=== PATIENT | female | born 1935 | race Caucasian/White ===

== ENCOUNTER 2018-03-27 17:34 | Emergency (ER) | payer OTHER ==
[~2018-03-27] VITALS: Ht 157.5 cm; Wt 69.8 kg
[~2018-03-27 17:34] MED LIST: ASPIR 8181 MG PO; ASPIRIN325 PO; CALCIUM 500 +1 EAC5 PO; COLACE100 MG PO; IRON325 PO; LIPITOR10 MG PO; MAGOX 400400 MG PO; NEXIUM40 MG PO; OSTERA TABLET1 EAC1 PO; PROBIOTIC1 EAC1 PO; PYRIDOXINE HCL50 MG PO; VITAMIN C500 MG/15 PO
[2018-03-27] MEDS ORDERED: VITAMIN B-50 C0.4 MG PO (17:46)
[2018-03-27] MEDS ORDERED: GARLIC1 EACH PO (17:46)
[2018-03-27] MEDS ORDERED: VITAMIN K100 MCG PO (17:47)
[2018-03-27 18:25] LABS: ABSOLUTE EOSINOPHILS 0.1 thou/uL (0.0-0.7); ABSOLUTE MONOCYTES 0.4 thou/uL (0.0-1.2); ABSOLUTE NEUTROPHILS 3.5 thou/uL (1.6-8.1); BASOPHILS 0.6 %; EOSINOPHILS 1.8 %; HEMATOCRIT 38.2 % (37.0-47.0); HEMOGLOBIN 12.9 gm/dL (12.0-15.0); LYMPHOCYTES 19.9 %; MCH 32.1 pg (26.0-34.0); MCHC 33.8 g/dL (28.0-37.0); MONOCYTES 8.7 %; MPV 8.5 fl. (7.2-11.1); NUCLEATED RBCS 0 /100WBC; PLATELET COUNT* 194 thou/uL (150-400); RBC 4.02 mil/uL (4.20-5.00); RDW-CV 13.4 % (10.5-14.5); WBC 5.1 thou/uL (4.0-11.0)
[2018-03-27 18:32] LABS: ANION GAP 7 mmol/L (7-16); BUN 24 mg/dL (7-18); CALCIUM 8.7 mg/dL (8.5-10.1); CHLORIDE 104 mmol/L (98-107); CO2 27 mmol/L (21-32); CREATININE 1.3 mg/dL (0.6-1.3); GLUCOSE 99 mg/dL (70-99); POTASSIUM 3.8 mmol/L (3.5-5.1); SODIUM 138 mmol/L (136-145)
[2018-03-27 18:39] LABS: ALBUMIN 3.5 g/dL (3.4-5.0); ALKALINE PHOSPHATASE 53 U/L (46-116); SGOT 19 U/L (15-37); SGPT 18 U/L (30-65); TOTAL BILIRUBIN 0.2 mg/dL (<0.1-1.0); TOTAL PROTEIN 6.4 g/dL (6.4-8.2); TROPONIN-I LEVEL <0.06 ng/mL (<0.06)
[2018-03-27 18:52] LABS: URINE BILIRUBIN NEGATIVE (Negative); URINE BLOOD NEGATIVE (Negative); URINE CLARITY CLEAR; URINE COLOR YELLOW; URINE GLUCOSE-RANDOM NEGATIVE (Negative); URINE KETONES NEGATIVE (Negative); URINE LEUKOCYTES-REFLEX NEGATIVE (Negative); URINE NITRITE-REFLEX NEGATIVE (Negative); URINE PROTEIN NEGATIVE (Negative); URINE SPECIFIC GRAVITY <= 1.005 (1.005-1.030); URINE UROBILINOGEN 0.2 E.U./dl (0.2-1.0)
[2018-03-27 22:27] VITALS: BP 155/68
--- NOTE | 2018-03-28 12:16 | EKG ---
[place] [address] ELECTROCARDIOGRAM REPORT Name: GUEVARA KYLE Room: [facility]#: [id number] Admission: 03/27/18 Attend Phys: Discharge: 03/27/18 Date of : 33 Report #: [id number] THIS REPORT FOR: //name// [facility] ED Test Date: 2018-03-27 Test Time: 18:13:46 Pat Name: GUEVARA KYLE Department: Room: Gender: F Director Of Land: [place] : 1935 Requested By: Nicki Feliciano Order Number: [id number] MD: Andrei Jha Measurements Intervals [place] Rate: 64 P: 27 DE: 124 QRS: -51 QRSD: 100 T: 3 QT: 426 QTc: 440 Interpretive Statements Sinus rhythm Left anterior fascicular block Low voltage, precordial leads Compared to ECG 11/26/2016 13:25:55 Left anterior fascicular block now present Low QRS voltage now present Left-axis deviation no longer present Electronically Signed On 03-28-2018 12:16:25 TOOL PROFILING 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
== END 2018-03-27 22:27 | disposition home or self-care (01) ==
LOC: M.ERS 17:34
PROVIDERS: Nurse Practitioner Family
DX: I10 Essential (primary) hypertension (principal); R55 Syncope and collapse; G89.29 Other chronic pain; M54.9 Dorsalgia, unspecified; Z88.1 Allergy status to other antibiotic agents; Z90.710 Acquired absence of both cervix and uterus

== ENCOUNTER 2021-02-15 15:31 | Inpatient (IN) | payer OTHER ==
[~2021-02-15] VITALS: Ht 154.9 cm; Wt 75.2 kg
--- NOTE | ~2021-02-15 | EMS ---
[facility] [address] [place] [address] EMS Patient Care Report Name: GUEVARA KYLE Room: [place] [address] ADM IN [facility]#: [id number] Admission: 02/15/21 Attend Phys: Ale Franz MD Discharge: Date of : 34 Report #: [id number] THIS REPORT FOR: //name// Report Transmitted: 02/15/2021 21:39 EMS Care Summary [facility] Incident [id number] @ 02/15/2021 14:42 Incident Location [address] [place] [address] Patient GUEVARA KYLE Female, 85 Years 1935 Patient Address [facility] [place] [address] Patient History Cancer, Unspecified,Stroke/CVA,Cellulitis, Patient Allergies Other drug allergy, Patient Medications Acetaminophen, Oxycodone, Chief Complaint cellulitis Disposition Transported No Lights/[place] Dispatch Reason Sick Person Transported To [facility] Narrative Dispatched to a residence for 85y/o female with leg pain and swelling. Upon arrival pt. was alert and oriented. Pt. has history of pelvic cancer. Approx. 1 month ago pt. had cellulitis of right leg and hip. Pt. received IV and oral antibiotics with no relief. Pt. states that the swelling and pain are greater [facility] [address] [place] [address] EMS Patient Care Report Name: GUEVARA KYLE Room: [place] [address] ADM IN .R.#: [id number] Admission: 02/15/21 Attend Phys: Ale Franz MD Discharge: Date of : 34 Report #: [id number] than 1 month ago. Pt. right leg and hip area are swollen when compared to the left. Right leg and hip are tender and have pain with palpation. Pt. has had fever at home of 103*f. VS were otherwise stable. Pt. was transported to [place] for emergency services. Initial Vitals @15:04P: 101,R: 18,BP: 135/53,GCS: 15,SpO2: 96,Revised Trauma: 12, @15:24P: 95,R: 18,BP: 121/60,GCS: 15,SpO2: 98,Revised Trauma: 12, @15:14P: 98,R: 18,BP: 116/63,GCS: 15,SpO2: 97,Revised Trauma: 12, @14:56P: 104,R: 18,BP: 134/65,GCS: 15,Temp: 100.9F,SpO2: 97,Revised Trauma: 12, Impression Cellulitis Timeline 14:42,Call Received 14:42,Dispatched 14:46,En Route 14:53,Initial Responder On Scene 14:53,On Scene 14:55,At Patient 14:56,BP: 134/65 M,PULSE: 104,RR: 18 R,SPO2: 97 Ox,ETCO2: ,BG: ,PAIN: ,GCS: 15, 15:04,BP: 135/53 M,PULSE: 101,RR: 18 R,SPO2: 96 Ox,ETCO2: ,BG: ,PAIN: ,GCS: 15, 15:06,Depart Scene 15:14,BP: 116/63 M,PULSE: 98,RR: 18 R,SPO2: 97 Ox,ETCO2: ,BG: ,PAIN: ,GCS: 15, 15:24,BP: 121/60 M,PULSE: 95,RR: 18 R,SPO2: 98 Ox,ETCO2: ,BG: ,PAIN: ,GCS: 15, 15:26,At Destination 15:28,Transfer Patient 15:37,Call Closed 15:52,In District Disclaimer v1.1 Copyright 2020 [employer] This EMS Care Summary contains data elements from the applicable legal record (which may be displayed differently). It is designed to provide pertinent information for the following purposes: continuity of care, clinical quality, and state data reporting. The complete legal record is available to ED staff and administrators of the receiving hospital in [employer]'s Patient Tracker. All data is provided "as is."
[~2021-02-15 15:31] MED LIST changes: +GARLIC1 EACH PO; +VITAMIN B-50 C0.4 MG PO; +VITAMIN K100 MCG PO
[2021-02-15 15:35] VITALS: BP 121/60
[2021-02-15 16:32] LABS: HEMATOCRIT 33.2 % (37.0-47.0); HEMOGLOBIN 10.9 gm/dL (12.0-15.0); MCH 30.3 pg (26.0-34.0); MCHC 32.9 g/dL (28.0-37.0); MCV 92.1 fL (80.0-100.0); MPV 7.1 fl. (7.2-11.1); NUCLEATED RBCS 0 /100WBC; PLATELET COUNT* 232 thou/uL (150-400); RBC 3.61 mil/uL (4.20-5.00); RDW-CV 14.2 % (10.5-14.5); WBC 13.6 thou/uL (4.0-11.0)
[2021-02-15 16:42] LABS: CALCIUM 8.4 mg/dL (8.5-10.1); CREATININE 1.3 mg/dL (0.6-1.3); POTASSIUM 3.9 mmol/L (3.5-5.1)
[2021-02-15 16:47] LABS: TOTAL BILIRUBIN 0.3 mg/dL (<0.1-1.0); TOTAL PROTEIN 7.1 g/dL (6.4-8.2)
[2021-02-15 16:58] LABS: ABSOLUTE LYMPHOCYTES 0.3 thou/uL (0.8-5.3); ABSOLUTE MONOCYTES 0.4 thou/uL (0.0-1.2); ABSOLUTE NEUTROPHILS 12.9 thou/uL (1.6-8.1); PLATELET ESTIMATE ADEQUATE
[2021-02-16] VITALS: BP 114/47
[2021-02-16 00:02] VITALS: BP 107/48
[2021-02-16] MEDS ORDERED: CALCIUM D-GLUC500 MG PO (06:17)
[2021-02-16] MEDS ORDERED: VITAMIN D3 COM1 EACH PO (06:20)
[2021-02-16 06:40] VITALS: BP 121/56
[2021-02-16 09:00] VITALS: BP 114/42
--- NOTE | 2021-02-16 10:17 | EKG ---
[place] [address] ELECTROCARDIOGRAM REPORT Name: GUEVARA KYLE Room: [address] IN ..#: [id number] Admission: 02/15/21 Attend Phys: Ale Franz, Discharge: Date of : 33 Date of Service: 02/15/211951 Report #: [id number] THIS REPORT FOR: //name// [facility] ED Test Date: 2021-02-15 Test Time: 19:52:43 Pat Name: GUEVARA DAVEYDEVONTAMEKA Department: Room: [facility] Gender: F Teaching Young: LORENZO : 1935 Requested By: Pooja Rodriguez Order Number: [id number] MD: Mio Ramos Measurements Intervals [place] Rate: 93 P: 35 NC: 144 QRS: -46 QRSD: 94 T: 20 QT: 382 QTc: 476 Interpretive Statements Sinus tachycardia Multiple premature complexes, vent & supraven Left anterior fascicular block Abnormal R-wave progression, late transition Borderline prolonged QT interval Compared to ECG 02/15/2021 19:23:51 Supraventricular tachycardia no longer present ST (T wave) deviation no longer present Electronically Signed On 02-16-2021 10:17:43 CDT by Mio Ramos [email or web address] <ELECTRONICALLY SIGNED> By: Mio Ramos MD, FACC 02/16/21 1017 51 51 Mio Ramos MD, [facility] /EPI
--- NOTE | 2021-02-16 10:17 | EKG ---
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 : 1935 Requested By: Pooja Rodriguez Order Number: [id number] MD: Mio Ramos Measurements Intervals [place] Rate: 174 P: 112 [place]: 94 QRS: -60 QRSD: 87 T: 77 QT: 287 QTc: 489 Interpretive Statements Supraventricular tachycardia Left anterior fascicular block Abnormal R-wave progression, late transition ST depression, probably rate related Compared to ECG 03/27/2018 18:13:46 ST (T wave) deviation now present Sinus rhythm no longer present Electronically Signed On 02-16-2021 10:17:14 CDT by Mio Ramos [email or web address] <ELECTRONICALLY SIGNED> By: Mio Ramos MD, [facility] 02/16/21 1017 22 22 Mio Ramos MD, [facility] /EPI
--- NOTE | 2021-02-16 10:18 | EKG ---
[place] [address] ELECTROCARDIOGRAM REPORT Name: GUEVARA KYLE Room: [address] ADM IN .R.#: [id number] Admission: 02/15/21 Attend Phys: Ale Franz, Discharge: Date of : 34 Date of Service: 02/15/212011 Report #: [id number] THIS REPORT FOR: //name// [facility] ED Test Date: 2021-02-15 Test Time: 20:12:28 Pat Name: GUEVARA DAVEYDEVONTAMEKA Department: Room: [facility] Gender: F Independent Living Advisor: KALEIGH : 1935 Requested By: Pooja Rodriguez Order Number: [id number] MD: Mio Ramos Measurements Intervals [place] Rate: 100 P: 62 AK: 168 QRS: -44 QRSD: 93 T: 27 QT: 352 QTc: 454 Interpretive Statements Sinus tachycardia artifact noted Multiple premature complexes, vent & supraven Inferior infarct, old Compared to ECG 02/15/2021 19:52:43 no change Electronically Signed On 02-16-2021 10:18:33 CDT by Mio Ramos [email or web address] <ELECTRONICALLY SIGNED> By: Mio Ramos MD, FACC 02/16/21 1018 11 11 Mio Ramos MD, FACC /EPI
[2021-02-16 12:00] VITALS: BP 170/85
[2021-02-16 16:00] VITALS: BP 111/53
[2021-02-17] VITALS: BP 120/51
[2021-02-17 04:00] VITALS: BP 123/58
[2021-02-17 08:30] VITALS: BP 104/76
[2021-02-17 12:00] VITALS: BP 117/54
[2021-02-17 16:00] VITALS: BP 124/58
[2021-02-17 20:00] VITALS: BP 136/65
[2021-02-18] VITALS (8 sets, daily range): BP systolic 130–168; BP diastolic 57–79
[2021-02-18 00:47] LABS: URINE BILIRUBIN NEGATIVE (Negative); URINE BLOOD NEGATIVE (Negative); URINE CLARITY CLEAR; URINE COLOR YELLOW; URINE GLUCOSE-RANDOM NEGATIVE (Negative); URINE KETONES TRACE (Negative); URINE LEUKOCYTES-REFLEX NEGATIVE (Negative); URINE NITRITE-REFLEX NEGATIVE (Negative); URINE PROTEIN TRACE (Negative); URINE SPECIFIC GRAVITY 1.025 (1.005-1.030); URINE UROBILINOGEN 0.2 E.U./dl (0.2-1.0)
[2021-02-18 13:40] LABS: MCH 30.7 pg (26.0-34.0); MCHC 33.2 g/dL (28.0-37.0); MCV 92.4 fL (80.0-100.0); MPV 7.6 fl. (7.2-11.1); NUCLEATED RBCS 0 /100WBC; PLATELET COUNT* 178 thou/uL (150-400); RBC 2.92 mil/uL (4.20-5.00); RDW-CV 14.2 % (10.5-14.5); WBC 5.2 thou/uL (4.0-11.0)
[2021-02-18 14:01] LABS: ALBUMIN 1.7 g/dL (3.4-5.0); CALCIUM 8.2 mg/dL (8.5-10.1); CREATININE 0.9 mg/dL (0.6-1.3); POTASSIUM 3.3 mmol/L (3.5-5.1); TOTAL BILIRUBIN 0.2 mg/dL (<0.1-1.0); TOTAL PROTEIN 5.4 g/dL (6.4-8.2)
[2021-02-18 14:11] LABS: ABSOLUTE EOSINOPHILS 0.1 thou/uL (0.0-0.7); ABSOLUTE LYMPHOCYTES 0.6 thou/uL (0.8-5.3); ABSOLUTE MONOCYTES 0.3 thou/uL (0.0-1.2); ABSOLUTE NEUTROPHILS 4.2 thou/uL (1.6-8.1)
[2021-02-18 14:12] LABS: PLATELET ESTIMATE ADEQUATE
[2021-02-18 14:13] LABS: HYPOCHROMASIA 1+
--- NOTE | 2021-02-18 17:09 | 2DMMODE ---
[place] [address] 2 D/M-MODE ECHOCARDIOGRAM Name: UGEVARA KYLE Room: [address] IN [facility]#: [id number] Admission: 02/15/21 Attend Phys: Ale Franz, Discharge: Date of : 34 Date of Service: 02/18/21 1708 Report #: [id number] THIS REPORT FOR: cc: RYANN ZARATE,RYANN Jeong,Feliz Lino MD [facility] ~ APPROVED REPORT Study performed: 02/18/2021 11:40:47 EXAM: Comprehensive 2D, Doppler, and color-flow Echocardiogram Patient Location: In-Patient Room #: [facility] Status: routine BSA: 1.74 HR: 92 bpm BP: 130/60 mmHg Rhythm: NSR Other Information Study Quality: Good Indications Murmur 2D Dimensions IVSd: 14.71 (7-11mm) LVOT Diam: 19.11 (18-24mm) LVDd: 35.00 mm PWd: 7.72 (7-11mm) Ascending Ao: 33.15 (22-36mm) LVDs: 17.24 (25-40mm) Aortic Root: 31.34 mm Aortic Valve AoV Peak Arnulfo.: 1.85 m/s AO Peak Gr.: 13.62 mmHg LVOT Max P.22 mmHg AO Mean Gr.: 7.90 mmHg LVOT Mean P.47 mmHg LVOT Max V: 1.14 m/s AO V2 VTI: 35.87 cm LVOT Mean V: 0.72 m/s JOSE (VTI): 1.90 cm2 LVOT V1 VTI: 23.72 cm Mitral Valve MV Mean Gr.: 6.18 mmHg E/A Ratio: 0.86 MV Decel. Time: 166.35 ms MV E Max Arnulfo.: 1.39 m/[place] [address] 2 D/M-MODE ECHOCARDIOGRAM Name: GUEVARA KYLE Room: [address] IN [facility]#: [id number] Admission: 02/15/21 Attend Phys: Ale Franz, Discharge: Date of : 34 Date of Service: 02/18/21 1708 Report #: [id number] MV PHT: 48.24 ms MVA (PHT): 4.56 cm2 TDI E/Lateral E': 15.44 E/Medial E': 19.86 Medial E' Arnulfo.: 0.07 m/s Lateral E' Arnulfo.: 0.09 m/s Pulmonary Valve PV Peak Arnulfo.: 1.05 m/s PV Peak Gr.: 4.39 mmHg Tricuspid Valve RAP Estimate: 5.00 mmHg TR Peak Gr.: 27.28 mmHg RVSP: 32.00 mmHg PA Pressure: 32.00 mmHg Left Ventricle The left ventricle is normal size. There is normal LV segmental wall motion. Moderate septal hypertrophy is present. Left ventricular systolic function is normal. LVEF is 65-70%. Grade I - abnormal relaxation pattern. Right Ventricle The right ventricle is normal size. The right ventricular systolic function is normal. Atria Left atrium is mildly dilated. The right atrium size is normal. Aortic Valve Mild aortic valve sclerosis. Mild aortic regurgitation. Mild aortic stenosis. Mitral Valve There is mitral annular calcification. Trace mitral regurgitation. No evidence of mitral valve stenosis. Tricuspid Valve The tricuspid valve is normal in structure. Mild tricuspid regurgitation. Mild pulmonary hypertension. Pulmonic Valve The pulmonary valve is normal in structure. Mild [place] [address] 2 D/M-MODE ECHOCARDIOGRAM Name: GUEVARA KYLE Room: [address]#: [id number] Admission: 02/15/21 Attend Phys: Ale Franz, Discharge: Date of : 34 Date of Service: 02/18/21 1708 Report #: [id number] Great Vessels The aortic root is normal in size. IVC is normal in size and collapses >50% with inspiration. Pericardium There is no pericardial effusion. <Conclusion> The left ventricle is normal size. Moderate septal hypertrophy is present. Left ventricular systolic function is normal. LVEF is 65-70%. Grade I - abnormal relaxation pattern. Left atrium is mildly dilated. Mild aortic valve sclerosis. Mild aortic regurgitation. Mild aortic stenosis. Trace mitral regurgitation. Mild tricuspid regurgitation. Mild pulmonary hypertension. Mild pulmonic regurgitation. IVC is normal in size and collapses >50% with inspiration. <ELECTRONICALLY SIGNED> By: Feliz Jeong MD, FACC 02/18/211707 07 07 Feliz Jeong MD, FACC /INF
[2021-02-19 04:52] VITALS: BP 144/79
[2021-02-19 08:00] VITALS: BP 159/70
[2021-02-19 12:00] VITALS: BP 131/86
[2021-02-19 16:00] VITALS: BP 160/72
[2021-02-20] VITALS (13 sets, daily range): BP systolic 129–217; BP diastolic 43–112
[2021-02-20] MEDS ORDERED: OXYCODONE-APAP1 EAC4 PO (09:05)
[2021-02-21] VITALS: BP 135/57
[2021-02-21 04:54] VITALS: BP 131/65
[2021-02-21 08:19] VITALS: BP 139/65
[2021-02-21 11:44] VITALS: BP 102/54
[2021-02-21 15:40] VITALS: BP 131/60
[2021-02-21 19:45] VITALS: BP 150/56
[2021-02-22 00:23] VITALS: BP 140/65
[2021-02-22 04:32] LABS: ABSOLUTE EOSINOPHILS 0.2 thou/uL (0.0-0.7); ABSOLUTE LYMPHOCYTES 0.6 thou/uL (0.8-5.3); ABSOLUTE MONOCYTES 0.5 thou/uL (0.0-1.2); ABSOLUTE NEUTROPHILS 3.9 thou/uL (1.6-8.1); BASOPHILS 0.5 %; EOSINOPHILS 3.7 %; HEMOGLOBIN 7.7 gm/dL (12.0-15.0); LYMPHOCYTES 12.1 %; MCH 30.8 pg (26.0-34.0); MCHC 33.6 g/dL (28.0-37.0); MCV 91.9 fL (80.0-100.0); MONOCYTES 9.2 %; MPV 7.8 fl. (7.2-11.1); NUCLEATED RBCS 0 /100WBC; PLATELET COUNT* 211 thou/uL (150-400); POLYS 74.5 %; RDW-CV 14.4 % (10.5-14.5); WBC 5.3 thou/uL (4.0-11.0)
[2021-02-22 04:47] VITALS: BP 129/60
[2021-02-22 04:51] LABS: ALBUMIN 1.8 g/dL (3.4-5.0); CREATININE 0.9 mg/dL (0.6-1.3); POTASSIUM 4.2 mmol/L (3.5-5.1); TOTAL BILIRUBIN 0.2 mg/dL (<0.1-1.0)
[2021-02-22 07:46] VITALS: BP 146/67
[2021-02-22 12:12] VITALS: BP 129/60
[2021-02-22 17:27] VITALS: BP 115/61
[2021-02-22 20:20] VITALS: BP 171/72
[2021-02-23] VITALS (7 sets, daily range): BP systolic 124–146; BP diastolic 55–89
[2021-02-23 08:07] LABS: HEMOGLOBIN 8.5 gm/dL (12.0-15.0); MCHC 33.8 g/dL (28.0-37.0); RBC 2.76 mil/uL (4.20-5.00)
[2021-02-23 08:09] LABS: HEMATOCRIT 25.1 % (37.0-47.0); MCH 30.7 pg (26.0-34.0); MPV 7.9 fl. (7.2-11.1); NUCLEATED RBCS 0 /100WBC; PLATELET COUNT* 262 thou/uL (150-400); RDW-CV 14.6 % (10.5-14.5)
[2021-02-23 08:25] LABS: CALCIUM 8.6 mg/dL (8.5-10.1); CREATININE 0.8 mg/dL (0.6-1.3); TOTAL BILIRUBIN 0.2 mg/dL (<0.1-1.0); TOTAL PROTEIN 5.5 g/dL (6.4-8.2)
[2021-02-23 08:33] LABS: PREALBUMIN 15.6 mg/dL (18.0-35.7)
[2021-02-23 09:13] LABS: ABSOLUTE EOSINOPHILS 0.1 thou/uL (0.0-0.7); ABSOLUTE LYMPHOCYTES 0.7 thou/uL (0.8-5.3); ABSOLUTE MONOCYTES 0.1 thou/uL (0.0-1.2); ABSOLUTE NEUTROPHILS 4.2 thou/uL (1.6-8.1)
[2021-02-23 09:14] LABS: HYPOCHROMASIA 1+; PLATELET ESTIMATE ADEQUATE
[2021-02-24 03:30] VITALS: BP 136/63
[2021-02-24 12:00] VITALS: BP 151/75
[2021-02-24 16:00] VITALS: BP 154/66
[2021-02-24 20:00] VITALS: BP 128/63
[2021-02-24 23:49] VITALS: BP 122/56
[2021-02-25 05:46] VITALS: BP 143/67
[2021-02-25 08:20] VITALS: BP 156/69
[2021-02-25 12:09] VITALS: BP 106/61
[2021-02-25 16:00] VITALS: BP 112/75
[2021-02-25 20:00] VITALS: BP 155/68
[2021-02-26 00:27] VITALS: BP 133/60
[2021-02-26 05:02] VITALS: BP 133/68
[2021-02-26 08:56] VITALS: BP 131/63
[2021-02-26 12:00] VITALS: BP 142/59
[2021-02-26 12:56] VITALS: BP 142/59
[2021-02-26 12:59] VITALS: BP 142/59
== END 2021-02-26 14:00 | disposition home health service (06) | DRG 872 ==
LOC: M.ERS 15:31 → M.TBA-ER 18:05 → M.2W 18:05 → M.TBA-ER 20:46 → M.2W 23:50
PROVIDERS: Emergency Medicine Emergency Medical Services; Internal Medicine; Physician Assistant; ADMIT Internal Medicine; ATTEND Internal Medicine
DX: A40.8 Other streptococcal sepsis (principal); E44.0 Moderate protein-calorie malnutrition; L03.115 Cellulitis of right lower limb; I47.1 Supraventricular tachycardia; L03.317 Cellulitis of buttock; I42.2 Other hypertrophic cardiomyopathy; Z20.822 Contact with and (suspected) exposure to COVID-19; G89.29 Other chronic pain; D64.9 Anemia, unspecified; M54.9 Dorsalgia, unspecified; R01.1 Cardiac murmur, unspecified; C51.9 Malignant neoplasm of vulva, unspecified; I10 Essential (primary) hypertension; Z86.010 Personal history of colon polyps; Z90.710 Acquired absence of both cervix and uterus; Z88.1 Allergy status to other antibiotic agents; Z86.73 Personal history of transient ischemic attack (TIA), and cerebral infarction without residual deficits; Z68.31 Body mass index [BMI] 31.0-31.9, adult; Z82.49 Family history of ischemic heart disease and other diseases of the circulatory system; Z92.3 Personal history of irradiation

== ENCOUNTER 2021-03-22 15:08 | Inpatient (IN) | payer OTHER ==
[~2021-03-22] VITALS: Ht 154.9 cm; Wt 68.0 kg
--- NOTE | ~2021-03-22 | EMS ---
[place] [address] EMS Patient Care Report Name: GUEVARA KYLE Room: [place] [address] ADM IN [facility]#: [id number] Admission: 03/22/21 Attend Phys: Adonis Sapp Discharge: Date of : 34 Report #: [id number] THIS REPORT FOR: //name// Report Transmitted: 03/22/2021 20:17 EMS Care Summary [facility] Incident [id number] @ 03/22/2021 14:23 Incident Location [address] [place] [address] Patient GUEVARA KYLE Female, 85 Years 1935 Patient Address [facility] [address] [place] [address] Patient History Cancer, Unspecified,Cellulitis,Novel Coronavirus (COVID-19), Patient Allergies Other drug allergy, Patient Medications Oxycodone/ASA, Oxycodone, Morphine, Chief Complaint ABD pain Disposition Transported No Lights/[place] Dispatch Reason Abdominal Pain/Problems Transported To [facility] Narrative Dispatched to a residence for 85y/o female with ABD pain. Upon arrival pt. was A&O. Pt. c/o upper middle ABD pain 8/10 worse with palpation. Pt. stated that she has had ABD discomfort x3 days and ABD pain x1 day. Pt. stated that she has been having regular bowel movements. Pt. was transported in position of comfort [facility] [address] [address] EMS Patient Care Report Name: GUEVARA KYLE Room: [place] [address] ADM IN [facility]#: [id number] Admission: 03/22/21 Attend Phys: Adonis Sapp Discharge: Date of : 34 Report #: [id number] which eased the pain to 6/10. VS were stable. Pt. requested no IV during transport. Pt. was transported to [place] for emergency services. Initial Vitals @14:50P: 80,R: 18,BP: 160/82,Pain: 6/10,GCS: 15,SpO2: 99,Revised Trauma: 12, @14:37P: 84,R: 18,BP: 170/80,Pain: 8/10,GCS: 15,Glucose: 144,SpO2: 98,Revised Trauma: 12, Impression Abdominal Pain Timeline 14:22,Call Received 14:23,Dispatched 14:25,En Route 14:31,Initial Responder On Scene 14:31,On Scene 14:33,At Patient 14:37,BP: 170/80 M,PULSE: 84,RR: 18 R,SPO2: 98 Ox,ETCO2: ,B,PAIN: 8,GCS: 15, 14:45,Depart Scene 14:50,BP: 160/82 M,PULSE: 80,RR: 18 R,SPO2: 99 Ox,ETCO2: ,BG: ,PAIN: 6,GCS: 15, 15:02,At Destination 15:04,Transfer Patient 15:20,Call Closed 15:40,In District Disclaimer v1.1 Copyright 2020 [employer] This EMS Care Summary contains data elements from the applicable legal record (which may be displayed differently). It is designed to provide pertinent information for the following purposes: continuity of care, clinical quality, and state data reporting. The complete legal record is available to ED staff and administrators of the receiving hospital in [employer]'s Patient Tracker. All data is provided "as is."
[~2021-03-22 15:08] MED LIST changes: +CALCIUM D-GLUC500 MG PO; +OXYCODONE-APAP1 EAC4 PO; +VITAMIN D3 COM1 EACH PO
[2021-03-22 15:12] VITALS: BP 140/78
[2021-03-22] MEDS ORDERED: MS CONTIN 30 MG30 M1 PO (15:22)
[2021-03-22 18:33] LABS: CALCIUM 9.1 mg/dL (8.5-10.1); POTASSIUM 4.2 mmol/L (3.5-5.1)
[2021-03-22 18:38] LABS: ALBUMIN 2.7 g/dL (3.4-5.0); TOTAL BILIRUBIN 0.7 mg/dL (<0.1-1.0); TOTAL PROTEIN 6.2 g/dL (6.4-8.2)
[2021-03-22 18:40] LABS: URINE BILIRUBIN NEGATIVE (Negative); URINE BLOOD NEGATIVE (Negative); URINE CLARITY CLEAR; URINE COLOR YELLOW; URINE GLUCOSE-RANDOM NEGATIVE (Negative); URINE KETONES NEGATIVE (Negative); URINE LEUKOCYTES-REFLEX TRACE (Negative); URINE NITRITE-REFLEX NEGATIVE (Negative); URINE PROTEIN NEGATIVE (Negative); URINE SPECIFIC GRAVITY >= 1.030 (1.005-1.030); URINE UROBILINOGEN 0.2 E.U./dl (0.2-1.0)
[2021-03-22 18:45] LABS: MUCUS None Seen strn/LPF (None Seen); SQUAMOUS >10 Many /LPF (0-3)
[2021-03-22 18:46] LABS: BACTERIA-REFLEX 1-9 Few /HPF (None Seen); CASTS None Seen /LPF (None Seen); CRYSTALS None Seen /LPF (None Seen); URINE WBC-REFLEX 6-15 Few /HPF (0-5)
[2021-03-22 18:47] LABS: URINE RBC None Seen /HPF (0-2)
[2021-03-22 19:02] LABS: HEMATOCRIT 32.7 % (37.0-47.0); HEMOGLOBIN 10.6 gm/dL (12.0-15.0); MCH 29.6 pg (26.0-34.0); MCHC 32.4 g/dL (28.0-37.0); MCV 91.2 fL (80.0-100.0); MPV 7.4 fl. (7.2-11.1); NUCLEATED RBCS 0 /100WBC; PLATELET COUNT* 259 thou/uL (150-400); RBC 3.58 mil/uL (4.20-5.00); RDW-CV 14.7 % (10.5-14.5)
[2021-03-22 19:18] LABS: ABSOLUTE LYMPHOCYTES 0.3 thou/uL (0.8-5.3); ABSOLUTE MONOCYTES 0.2 thou/uL (0.0-1.2); ABSOLUTE NEUTROPHILS 7.4 thou/uL (1.6-8.1); PLATELET ESTIMATE ADEQUATE
[2021-03-22 23:08] VITALS: BP 128/56
[2021-03-23 07:20] VITALS: BP 134/52
--- NOTE | 2021-03-23 09:43 | EKG ---
[place] [address] ELECTROCARDIOGRAM REPORT Name: GUEVARA KYLE Room: [place] [address] ADM IN [facility]#: [id number] Admission: 03/22/21 Attend Phys: Jose Alfredo Lovelace Discharge: Date of : 34 Date of Service: 03/22/21 1848 Report #: [id number] THIS REPORT FOR: //name// [facility] ED Test Date: 2021-03-22 Test Time: 18:48:43 Pat Name: GUEVARA KYLE Department: Room: [facility] Gender: F Hide Buffer: NIESHA : 1935 Requested By: Jermain Salinas Order Number: [id number] MD: Jason Ndiaye Measurements Intervals [place] Rate: 80 P: -7 [place]: 116 QRS: -45 QRSD: 95 T: 29 QT: 369 QTc: 426 Interpretive Statements Sinus rhythm Borderline short [place] interval Left anterior fascicular block Compared to ECG 02/15/2021 20:12:28 Left anterior fascicular block now present Sinus tachycardia no longer present Myocardial infarct finding no longer present Electronically Signed On 03-23-2021 9:43:13 MANAGER ZONE by Jason Ndiaye [email or web address] <ELECTRONICALLY SIGNED> By: Pravin Ndiaye MD, [facility] 03/23/21 0943 47 47 Pravin Ndiaye MD, [facility] /EPI
[2021-03-23 11:17] VITALS: BP 116/52
[2021-03-23 15:26] VITALS: BP 145/58
--- NOTE | 2021-03-23 15:45 | NUR ---
THIS RN SPOKE WITH DR. CHONG WITH ONCOLOGY. DR. CHONG REPORTS SHE WOULD NEED BIOPSY RESULTS. GI NEEDS TO SEE THE PATIENT FIRST.
[2021-03-23 16:05] VITALS: BP 145/58
[2021-03-23 17:38] VITALS: BP 140/58
--- NOTE | 2021-03-23 19:25 | NUR ---
Patient came here from ER with diagnosis of pancreatitis and epigastric pain. Patient also has cellulitis of right lower leg. Patient is on clear liquid diet, and tolerated well. Patient has pain to buttocks from cancer treatment. Patient also says her right lower leg is hurting. This patient is very independent, and is not very happy with having to have help when getting up. Did explain to patient need for assistance due to Morphine being given.
[2021-03-23 20:18] VITALS: BP 142/64
[2021-03-24] MEDS ORDERED: CALCIUM LACTAT100 MG PO ×2 (03:16→03:17)
[2021-03-24] MEDS ORDERED: MAG-G27 MG PO (03:18)
--- NOTE | 2021-03-24 04:23 | NUR ---
PT A&OX4, VSS ON ROOM AIR, IV FLUIDS INFUSING ORDERED, PT UP WITH SBA TO ALEXYS, PHOTO TAKEN OF PERINEUM OPEN WOUND. PRN IV PAIN MED & BENADRYL REQUESTED AND GIVEN ORDERED, PT SLEEPING WELL. WILL CONTINUE TO MONITOR.
[2021-03-24 04:52] LABS: HEMATOCRIT 26.9 % (37.0-47.0); HEMOGLOBIN 8.8 gm/dL (12.0-15.0); MCH 29.9 pg (26.0-34.0); MCHC 32.7 g/dL (28.0-37.0); MCV 91.2 fL (80.0-100.0); MPV 7.8 fl. (7.2-11.1); RBC 2.95 mil/uL (4.20-5.00); RDW-CV 15.1 % (10.5-14.5); WBC 4.1 thou/uL (4.0-11.0)
[2021-03-24 05:05] LABS: ALBUMIN 2.3 g/dL (3.4-5.0); CALCIUM 8.5 mg/dL (8.5-10.1); CREATININE 0.8 mg/dL (0.6-1.3); POTASSIUM 3.8 mmol/L (3.5-5.1); TOTAL BILIRUBIN 0.4 mg/dL (<0.1-1.0); TOTAL PROTEIN 5.4 g/dL (6.4-8.2)
[2021-03-24 08:12] VITALS: BP 127/59
[2021-03-24 16:00] VITALS: BP 121/62
--- NOTE | 2021-03-24 18:20 | NUR ---
NO ACUTE EVENTS THIS SHIFT. PT GIVEN 4MG IV MORPHINE Q3H WITH EFFECTIVE PAIN RELIEF. PT AMBULATES TO BATHROOM SBA. PLAN PENDING GI CONSULT, RESOLUTIN OF PANCREATITIS, ONCOLOGY CONSULT. PT WISHES TO RETURN HOME ON D/C
[2021-03-24 19:23] VITALS: BP 137/56
--- NOTE | 2021-03-25 04:18 | NUR ---
PT A&OX4, VSS ON ROOM AIR, IV FLUIDS INFUSING ORDERED, UP WITH SBA TO TOLIET, RLE ELEVATED ON PILLOW WHILE IN BED. PRN IV PAIN MED REQUESTED AND GIVEN ORDERED. PT SLEEPING WELL, WILL CONTINUE TO MONITOR.
[2021-03-25 08:00] VITALS: BP 131/59
[2021-03-25 10:51] LABS: ABSOLUTE EOSINOPHILS 0.1 thou/uL (0.0-0.7); ABSOLUTE LYMPHOCYTES 0.3 thou/uL (0.8-5.3); ABSOLUTE MONOCYTES 0.3 thou/uL (0.0-1.2); ABSOLUTE NEUTROPHILS 2.8 thou/uL (1.6-8.1); BASOPHILS 0.4 %; HEMATOCRIT 24.4 % (37.0-47.0); HEMOGLOBIN 7.9 gm/dL (12.0-15.0); LYMPHOCYTES 9.1 %; MCH 29.5 pg (26.0-34.0); MCHC 32.5 g/dL (28.0-37.0); MCV 90.8 fL (80.0-100.0); MPV 7.2 fl. (7.2-11.1); NUCLEATED RBCS 0 /100WBC; PLATELET COUNT* 156 thou/uL (150-400); POLYS 80.5 %; RBC 2.69 mil/uL (4.20-5.00); RDW-CV 14.7 % (10.5-14.5); WBC 3.5 thou/uL (4.0-11.0)
[2021-03-25 11:04] LABS: CALCIUM 8.1 mg/dL (8.5-10.1); CREATININE 0.7 mg/dL (0.6-1.3); TOTAL BILIRUBIN 0.4 mg/dL (<0.1-1.0); TOTAL PROTEIN 4.9 g/dL (6.4-8.2)
--- NOTE | 2021-03-25 11:37 | NUR ---
WOUND NURSE: PATIENT SEEN TO ADDRESS LESION IN PERINEUM MEASURING APPROX 1.5 X 1.5 CM AND IS FULLY COVERED WITH FIRMLY ADHERENT YELLOW SLOUGH APPEARING SUBSTANCE. PATIENT THERE ARE ALSO MULTIPLE NODULAR ERUPTIONS IN THE AFFECTED AREA ALSO. PATIENT REPORTING THIS THIS IS VERY TENDER AND HURTS WHEN SHE URINATES. IRRIGATED THE AFFECTED AREA WITH SALINE AND AND APPLIED A PIECE OF AQUACEL AG. RECOMMENDING THIS TO BE CHANGED DAILY NEED IF FALLS OUT. RECOMMENDED PATIENT BE SEEN IN [facility] HERE AT [facility] AND SHE IS RECEPTIVE OF THIS. CALLED [facility] AND PATIENT HAS APPT SCHEDULED FOR DR. ABDI NEXT THU AT 0800. PATIENT WAS INFORMED AND STATES SHE UNDERSTANDS.
--- NOTE | 2021-03-25 19:40 | NUR ---
PT UP SITTING ON HER BED. PT HAS CELLULITIS IN HER RIGHT LEG BUT LOOKS LIKE MORE LYMPHADEMA THAN CELLULITIS. 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 VSS AFEBRILE. PT DOWN FOR MRI THIS AFTERNOON. WILL CONTINUE TO MONITOPR PLAN OF CARE.
--- NOTE | 2021-03-25 19:45 | NUR ---
CM FOLLOWUP ASSESSMENT COMPLETED WITH PT. PT LIVES WITH AND PLANS TO RETURN HOME UPON [place]. PT HAS NO HISTORY OF DME OR ADL SUPPORTS. PT HAS NO HISTORY OF SKILLED OR REHAB SERVICES. PT HAD HH EARLIER THIS YEAR AND DOES NOT KNOW IF SHE WOULD LIKE TO RESUME SERVICES UPON [place].
[2021-03-25 20:00] VITALS: BP 136/66
[2021-03-26 04:48] LABS: HEMATOCRIT 23.8 % (37.0-47.0); MCH 30.2 pg (26.0-34.0); MCHC 33.5 g/dL (28.0-37.0); MCV 90.3 fL (80.0-100.0); MPV 7.7 fl. (7.2-11.1); RBC 2.64 mil/uL (4.20-5.00); RDW-CV 14.9 % (10.5-14.5); WBC 3.5 thou/uL (4.0-11.0)
[2021-03-26 05:00] LABS: ALBUMIN 1.9 g/dL (3.4-5.0); CALCIUM 8.6 mg/dL (8.5-10.1); CREATININE 0.8 mg/dL (0.6-1.3); MAGNESIUM 1.7 mg/dL (1.8-2.4); POTASSIUM 3.9 mmol/L (3.5-5.1); TOTAL BILIRUBIN 0.3 mg/dL (<0.1-1.0); TOTAL PROTEIN 4.9 g/dL (6.4-8.2)
--- NOTE | 2021-03-26 06:30 | NUR ---
PATIENT SLEPT WELL DURING THIS SHIFT. PT USES CALL LIGHT APPROPRIATELY FOR ASSISTANCE TO BATHROOM. PT VOIDS YELLOW URINE. PT WITH CELLULITIS IN LOWER EXTREMITIES. PT HAS AQUACEL IN SHEY AREA PLACED DURING DAY SHIFT. PT ON SCHEDULED MS CONTIN AND REQUESTED PAIN MEDS X1, RECEIVED PERCOCET 1 TAB. PT IS ASLEEP AT THIS TIME. FRREQUENTLY USED ITEMS AND CALL LIGHT WITHIN REACH. SIDERAILS UPX2 AND BED ALARM ON. WILL CONTINUE TO MONITOR.
[2021-03-26 08:43] VITALS: BP 133/58
--- NOTE | 2021-03-26 11:58 | NUR ---
Nutrition: Pt admitted with acute pancreatitis - resolved. Seen for pressure ulcer risk. Pt has ulcer on felecia area. Albumin 1.9, prealb 10.9. She said she is eating well, but did agree to Michael for wound healing. Wt is at her usual of 150#. Soft diet ordered. RD will order Michael. Otherwise, mild to low nutrition risk.
[2021-03-26 15:50] VITALS: BP 128/59
--- NOTE | 2021-03-26 17:46 | NUR ---
CM FOLLOWUP PT TO [place] 03/27/21 WITH HH [facility] ([phone])
[2021-03-26 19:57] VITALS: BP 141/54
--- NOTE | 2021-03-27 05:07 | NUR ---
PT A&OX4, VSS ON ROOM AIR, NO IV ACCESS - IV CLOTTED OFF, PT REFUSED NEW IV - NO IV MEDS ON ORDER. UP WITH SBA. PT SLEEPING WELL, WILL CONTINUE TO MONITOR.
[2021-03-27 08:15] VITALS: BP 124/53
[2021-03-27 09:18] VITALS: BP 124/53
[2021-03-27] MEDS ORDERED: ZOFRAN ODT4 MG PO (09:48)
[2021-03-27] MEDS ORDERED: PROTONIX40 M2 PO (09:48)
[2021-03-27 11:05] VITALS: BP 124/53
--- NOTE | 2021-03-27 13:50 | NUR ---
PT UP WITH STANDBY ASST. PT ON RM AIR. PT A&O X 4. PT DID COMPLAIN OF UUPER ABD PAIN RESOLVED WITH PAIN MEDS. PT WAITING FOR GRAND DAUGHTER T0 PICK HER UP FOR DC. PT HAS CALL LIGHT IN REACH.
--- NOTE | 2021-03-27 17:23 | CON ---
[address] [address] CONSULTATION Name: GUEVARA KYLE Room: [address]#: [id number] Admission: 03/22/21 Attend Phys: Adonis Sapp Discharge: 03/27/21 Date of : 33 Report #: [id number] THIS REPORT FOR: cc: RYANN ZARATE,RYANN Hoffmann,Barbara He MD ~ DATE OF CONSULTATION: 03/24/2021 REASON FOR CONSULTATION: Epigastric pain. HISTORY OF PRESENT ILLNESS: This is an 85-year-old female with history of anemia and blood transfusion back in 2015 when I performed upper and lower endoscopy on her. The patient reports that she started having epigastric pain radiating to chest for 3 days. This was worsening, she came to Emergency Room for evaluation. Upon her ER visit, the patient found to have abnormal lipase with evaluation of 19,000. She also had dilation of left intrahepatic duct and common bile duct with some prominence in the pancreatic head. She has been receiving pain medication and currently she appears comfortable. She denies nausea or vomiting and reports that she had a loose bowel movement earlier on. PAST MEDICAL HISTORY: Significant for history of cancer of volvulus and cellulitis. She has a history of anemia in the past requiring blood transfusion, urinary tract infection, and GERD. ALLERGIES: SIGNIFICANT TO ERYTHROMYCIN. MEDICATIONS: Please refer to MAR. SOCIAL HISTORY: The patient lives at home. Denies tobacco or alcohol use. FAMILY HISTORY: Noncontributory. PHYSICAL EXAMINATION: VITAL SIGNS: Reveals blood pressure of 127/59, respirations 16, pulse 78, temperature 97.8. LUNGS: Clear. CARDIOVASCULAR: Regular. ABDOMEN: Soft, mildly tender to palpation in the epigastric region. Bowel sounds are present, but hypoactive. NEUROLOGIC: The patient is alert and oriented x3. EXTREMITIES: The patient has swelling of the lower extremities, [place] [address] CONSULTATION Name: GUEVARA KYLE Room: [address]#: [id number] Admission: 03/22/21 Attend Phys: Adonis Sapp Discharge: 03/27/21 Date of : 33 Report #: [id number] prominent than the right. LABORATORY DATA: Reveals sodium of 142, potassium is 4.4, BUN 7, creatinine 0.8, glucose is 81, AST 47, ALT 44, alkaline phosphatase is 134. Lipase today is 921 down from 11,658 yesterday. WBC is 4.1, hemoglobin 8.8, platelets of 189. IMAGING: CT of abdomen and pelvis discussed as above. ASSESSMENT AND PLAN: The patient with acute pancreatitis with some abnormality in the common bile duct and left intrahepatic duct per CT and also a prominence of the pancreatic head. I will order MRI of abdomen. Meanwhile, we will continue hydration and keep her on liquid diet. I will monitor her lipase and reassess her symptoms tomorrow. Her hemoglobin also is 8.8 and her most recent iron study in February appeared normal. We will continue monitoring her H and H. <ELECTRONICALLY SIGNED> By: Barbara Hoffmann MD 03/27/21 1723 1100 [id number] Hoffmann MD /nt
--- NOTE | 2021-03-27 18:12 | NUR ---
CM FOLLOWUP PT DC 03/27/[address] [facility] [phone]
== END 2021-03-27 13:45 | disposition home health service (06) | DRG 439 ==
LOC: M.ERS 15:08 → M.3W 20:31 → M.TBA-ER 20:31 → M.3W 03-23 16:25
PROVIDERS: Emergency Medicine Emergency Medical Services; Internal Medicine; ADMIT Internal Medicine; ATTEND Internal Medicine
DX: K85.90 Acute pancreatitis without necrosis or infection, unspecified (principal); E44.1 Mild protein-calorie malnutrition; N39.0 Urinary tract infection, site not specified; Z20.822 Contact with and (suspected) exposure to COVID-19; K21.9 Gastro-esophageal reflux disease without esophagitis; R74.01 Elevation of levels of liver transaminase levels; N90.89 Other specified noninflammatory disorders of vulva and perineum; Z85.89 Personal history of malignant neoplasm of other organs and systems; Z88.1 Allergy status to other antibiotic agents; Z79.899 Other long term (current) drug therapy; Z68.28 Body mass index [BMI] 28.0-28.9, adult